=== PATIENT | male | born 1995 | race Caucasian/White ===

== ENCOUNTER 2018-11-05 12:21 | Emergency (ER) | payer SELFPAY ==
[~2018-11-05] VITALS: Ht 188 cm; Wt 77.1 kg
[2018-11-05 12:25] VITALS: BP 134/68
[2018-11-05] MEDS ORDERED: DEXAMETHASONE SOD PHOSPHATE 4 MG/ML VIAL IV ONE (13:00)
[2018-11-05] MEDS ORDERED: KETOROLAC TROMETHAMINE INJ 30 MG/ML VIAL IV ONE (13:00)
[2018-11-05] MEDS ORDERED: CLINDAMYCIN 900 MG in IV D5W 100 ML IV ONE (13:00)
[2018-11-05] MEDS ORDERED: IV NS 0.9% 1,000 ML BAG IV ONE (13:00)
[2018-11-05] MEDS ORDERED: DEXAMETHASONE SOD PHOSPHATE 10 MG/ML VIAL ONE (13:07)
[2018-11-05] MEDS ORDERED: KETOROLAC TROMETHAMINE INJ 30 MG/ML VIAL ONE (13:07)
== END 2018-11-05 14:04 | disposition home or self-care (01) ==
LOC: ER 12:21
DX: J02.9 Acute pharyngitis, unspecified (principal); K12.2 Cellulitis and abscess of mouth
CPT/HCPCS: 96365; 96375; 99283; J1100; J1885; J3490; J7060